=== PATIENT | male | born 2000 | race Caucasian/White ===

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

== ENCOUNTER 2022-03-30 14:32 | Emergency (ER) | payer OTHER ==
[2022-03-30] MEDS ORDERED: XYLOCAINE 1% HCL 20 ML MDV ONE (14:44)
[2022-03-30] MEDS ORDERED: XYLOCAINE 1% HCL 20 ML MDV IJ ONE (14:44)
--- NOTE | 2022-03-30 15:07 | ERPHSYRPT ---
- History of Present Illness Time Seen by Provider: 03/30/22 15:00 Source: patient Exam Limitations: no limitations Patient Subjective Stated Complaint: laceration to L thumb Triage Nursing Assessment: pt to ED c/o lac to L thumb. pt was opening bottle at home and accidentally cut self with knife. applied neosporin and bandaid and came to ED. rates 8/10 pain now. V shaped lac apprx 3 cm in lenth. bleeding controlled on arrival. Physician History: Patient was trying to open a bottle with a knife when he suffered a laceration to the radial side of the distal left thumb is a V-shaped laceration starting laterally and partially going into the nailbed and extending to the tip of the finger toward the pad side. Total length is 3 cm. Neurovascular tendon are intact. He denies any other injury. This occurred just prior to arrival. Occurred: just prior to arrival Method of Injury: incised Quality: aching Severity of Pain-Max: mild Severity of Pain-Current: mild Extremities Pain Location: thumb: left Modifying Factors: Improves With: movement Associated Symptoms: none Allergies/Adverse Reactions: No Known Drug Allergies Allergy (Verified 03/30/22 14:45) Hx Tetanus, Diphtheria Vaccination/Date Given: Yes Hx Influenza Vaccination/Date Given: No Hx Pneumococcal Vaccination/Date Given: No Immunizations Up to Date: Yes Travel Risk - International Travel Have you traveled outside of the country in past 3 weeks: No - Coronavirus Screening Are you exhibiting any of the following symptoms?: No Close contact with a COVID-19 positive Pt in past 14-21 Days: No - Vaccine Status Have you recieved a Covid-19 vaccination: Yes [employer]: Moderna - Vaccination Dates Date of 2cond Vaccination (if applicable): 2020 - Review of Systems Constitutional: No Fever, No Chills Eyes: No Symptoms Ears, Nose, & Throat: No Symptoms Respiratory: No Cough, No Dyspnea Cardiac: No Chest Pain, No Edema, No Syncope Abdominal/Gastrointestinal: No Abdominal Pain, No Nausea, No Vomiting, No Diarrhea Genitourinary Symptoms: No Dysuria Musculoskeletal: No Back Pain, No Neck Pain Skin: No Rash Neurological: No Dizziness, No Focal Weakness, No Sensory Changes Psychological: No Symptoms Endocrine: No Symptoms All Other Systems: Reviewed and Negative - Past Medical History Pertinent Past Medical History: Yes Neurological History: No Pertinent History ENT History: No Pertinent History Cardiac History: No Pertinent History Respiratory History: No Pertinent History Endocrine Medical History: No Pertinent History Musculoskeletal History: Fractures GI Medical History: No Pertinent History History: No Pertinent History Psycho-Social History: Other Male Reproductive Disorders: No Pertinent History Other Medical History: asperger's, ADHD, sutures, arm and leg fx - Past Surgical History Past Surgical History: No Neuro Surgical History: No Pertinent History Cardiac: No Pertinent History Respiratory: No Pertinent History Gastrointestinal: No Pertinent History Genitourinary: No Pertinent History Musculoskeletal: No Pertinent History Male Surgical History: No Pertinent History - Social History Smoking Status: Current every day smoker Exposure to second hand smoke: Yes Drug Use: none Patient Lives Alone: No Significant Family History: no pertinent family hx - Nursing Vital Signs Nursing Vital Signs: Initial Vital Signs Temperature 99 F 03/30/22 14:46 Pulse Rate 69 03/30/22 14:46 Respiratory Rate 22 03/30/22 14:46 Blood Pressure 138/82 03/30/22 14:46 O2 Sat by Pulse Oximetry 97 03/30/22 14:46 Pain Scale Pain Intensity 8 - Physical Exam General Appearance: mild distress, alert Eyes, Ears, Nose, Throat Exam: moist mucous membranes Neck Exam: normal inspection, non-tender, supple Cardiovascular/Respiratory Exam: no respiratory distress Abdominal Exam: No guarding Back Exam: normal inspection, No vertebral tenderness Shoulder Exam: normal inspection, non-tender Elbow/Forearm Exam: normal inspection, non-tender Wrist Exam: normal inspection, non-tender Hand Exam: laceration (V-shaped laceration left thumb radial aspect of the distal phalanx) Neuro/Tendon Exam: normal sensation, normal motor functions Mental Status Exam: alert, oriented x 3, cooperative Skin Exam: normal color, warm, dry, laceration SpO2 Interpretation: normal SpO2: 97 O2 Delivery: Room Air Procedures - Laceration/Wound Repair Left Distal Finger Time of Procedure: 15:05 Wound Location: Left, hand (3 cm laceration V-shaped flap distal phalanx radial aspect of the left thumb) Wound Length (cm): 3 Wound's Depth, Shape: flap Wound Explored: clean Irrigated: Yes Hibiclens Prep: Yes Anesthesia: 1% Lidocaine Volume Anesthetic (ccs): 3 Wound Debrided: minimal Wound Repaired With: sutures Suture Size/Type: 5-0 Number of Sutures: 4 Layer Closure?: No Sterile Dressing Applied?: Yes Splint Applied?: No - Course Nursing assessment & vital signs reviewed: Yes Ordered Tests: Active Orders 24 hr Category Date Time Status Wound Care STAT Care 03/30/22 14:44 Active Medication Summary Discontinued Medications Generic Name Dose Route Start Last Admin Trade Name Mejia PRN Reason Stop Dose Admin Lidocaine HCl 5 ml 03/30/22 14:44 03/30/22 14:52 Lidocaine Hcl 1% 20 Ml Mdv 20 Ml Ml IJ 03/30/22 14:45 5 ml STAT ONE Administration Lidocaine HCl Confirm 03/30/22 14:44 Lidocaine Hcl 1% 20 Ml Mdv 20 Ml Ml Administered 03/30/22 14:45 Dose 5 ml .ROUTE .STK-MED ONE - Progress Progress: improved - Departure Departure Disposition: Home Clinical Impression: Laceration of left thumb Condition: Stable Critical Care Time: No Referrals: DOCTOR,NO FAMILY [Primary Care Provider] - Follow up/PCP as directed Instructions: Laceration Repair With Stitches (DC) Prescriptions: Cephalexin Mh 500 mg [Keflex 500 mg] 500 mg PO Q6H 7 Days #28 cap
[2022-03-30 15:12] VITALS: BP 119/72
[2022-03-30 19:06] VITALS: PULSE 72; O2SAT 100
== END 2022-03-30 15:17 | disposition home or self-care (01) ==
LOC: ED 14:32
DX: S61.112A Laceration without foreign body of left thumb with damage to nail, initial encounter (principal); W26.0XXA Contact with knife, initial encounter; Z72.0 Tobacco use
CPT/HCPCS: 12002; 96372; 99283

== ENCOUNTER 2022-04-03 20:05 | Emergency (ER) | payer OTHER ==
[2022-04-03 20:44] VITALS: BP 126/71; PULSE 86; O2SAT 98
[2022-04-03] MEDS ORDERED: MOTRIN 600 MG PO ONE (20:45)
[2022-04-03] MEDS ORDERED: MOTRIN 600 MG ONE (20:46)
--- NOTE | 2022-04-03 20:51 | ERPHSYRPT ---
- History of Present Illness Source: patient Exam Limitations: no limitations Patient Subjective Stated Complaint: pt states "I got stitches the other day and I tripped and fell today and my stitches started bleeding. I got worried that I popped something off." Triage Nursing Assessment: pt alert and oriented x3, pt ambulates to bed by self, pt has sutures in L thumb that were placed on 03/30/2022, pt fell today and landed on that hand and had some bleeding from the area of sutures, bleeding is controlled at this time, site is clean and dry Physician History: Pt had sutures placed distal L 1st digit on 03/30/22 states that he fell today causing some bleeding. Pt denies fever/increased erythema/exudate. Timing/Duration: other (03/30/22) Quality: painful Severity: mild Location: other (L 1st distal digit) Possible Causes: other (Laceration w knife/Fall) Associated Symptoms: denies symptoms Allergies/Adverse Reactions: No Known Drug Allergies Allergy (Verified 04/03/22 20:37) Hx Tetanus, Diphtheria Vaccination/Date Given: Yes Hx Influenza Vaccination/Date Given: No Hx Pneumococcal Vaccination/Date Given: No Immunizations Up to Date: Yes Travel Risk - International Travel Have you traveled outside of the country in past 3 weeks: No - Coronavirus Screening Are you exhibiting any of the following symptoms?: No Close contact with a COVID-19 positive Pt in past 14-21 Days: No - Vaccine Status Have you recieved a Covid-19 vaccination: Yes Braided Rug Maker: Moderna - Vaccination Dates Date of 2cond Vaccination (if applicable): 2020 - Review of Systems Constitutional: No Symptoms Eyes: No Symptoms Ears, Nose, & Throat: No Symptoms Respiratory: No Symptoms Cardiac: No Symptoms Abdominal/Gastrointestinal: No Symptoms Genitourinary Symptoms: No Symptoms Musculoskeletal: No Symptoms Skin: No Symptoms Neurological: No Symptoms Psychological: No Symptoms Endocrine: No Symptoms Hematologic/Lymphatic: No Symptoms Immunological/Allergic: No Symptoms - Past Medical History Pertinent Past Medical History: Yes Neurological History: No Pertinent History ENT History: No Pertinent History Cardiac History: No Pertinent History Respiratory History: No Pertinent History Endocrine Medical History: No Pertinent History Musculoskeletal History: Fractures GI Medical History: No Pertinent History History: No Pertinent History Psycho-Social History: Other Male Reproductive Disorders: No Pertinent History Other Medical History: asperger's, ADHD, sutures, arm and leg fx - Past Surgical History Past Surgical History: No Neuro Surgical History: No Pertinent History Cardiac: No Pertinent History Respiratory: No Pertinent History Gastrointestinal: No Pertinent History Genitourinary: No Pertinent History Musculoskeletal: No Pertinent History Male Surgical History: No Pertinent History - Social History Smoking Status: Current every day smoker Exposure to second hand smoke: Yes Drug Use: none Patient Lives Alone: No Significant Family History: no pertinent family hx - Nursing Vital Signs Nursing Vital Signs: Initial Vital Signs Temperature 98.2 F 04/03/22 20:37 Pulse Rate 86 04/03/22 20:37 Respiratory Rate 16 04/03/22 20:37 Blood Pressure 126/71 04/03/22 20:37 O2 Sat by Pulse Oximetry 98 04/03/22 20:37 Pain Scale Pain Intensity 8 WNL - Physical Exam General Appearance: no apparent distress Eye Exam: PERRL/EOMI, eyes nml inspection Ears, Nose, Throat Exam: normal ENT inspection, TMs normal, pharynx normal, moist mucous membranes Neck Exam: normal inspection, non-tender, supple, full range of motion, No meningismus, No mass, No Brudzinski, No Kernig's Respiratory Exam: normal breath sounds, lungs clear, airway intact, No respiratory distress Cardiovascular Exam: regular rate/rhythm, normal heart sounds, normal peripheral pulses, capillary refill <2 sec, No murmur Gastrointestinal/Abdomen Exam: soft, normal bowel sounds, No tenderness Back Exam: normal inspection, normal range of motion Extremity Exam: other (Sutures L distal 1st digit/clean, dry, and intact/No exudate, erythema, or dehiscence) Skin Exam: normal color, warm, dry Lymphatic Exam: No adenopathy SpO2 Interpretation: normal SpO2: 98 O2 Delivery: Room Air - Course Nursing assessment & vital signs reviewed: Yes Ordered Tests: Medication Summary Discontinued Medications Generic Name Dose Route Start Last Admin Trade Name Freq PRN Reason Stop Dose Admin Ibuprofen 600 mg 04/03/22 20:45 04/03/22 20:47 Ibuprofen 600 Mg Tablet PO 04/03/22 20:46 600 mg STAT ONE Administration Ibuprofen Confirm 04/03/22 20:46 Ibuprofen 600 Mg Tablet Administered 04/03/22 20:47 Dose 600 mg .ROUTE .STK-MED ONE - Progress Progress Note: 04/03/22 20:50 600mg po Motrin Counseled pt/family regarding: diagnosis, need for follow-up - Departure Departure Disposition: Home Clinical Impression: Encounter for wound re-check Condition: Stable Critical Care Time: No Referrals: DOCTOR,NO FAMILY [Primary Care Provider] - Follow up/PCP as directed Instructions: Wound Care (DC) Additional Instructions: Motrin/Tylenol for pain Wash laceration gently 1-2 times a day with soap/water Watch for signs of infection-redness/pain/pus/temperature greater than 100.5
== END 2022-04-03 20:58 | disposition home or self-care (01) ==
LOC: ED 20:05
DX: Z48.00 Encounter for change or removal of nonsurgical wound dressing (principal)
CPT/HCPCS: 99283; A9270-GY

== ENCOUNTER 2022-04-09 20:52 | Emergency (ER) | payer OTHER ==
--- NOTE | 2022-04-09 21:19 | ERPHSYRPT ---
- History of Present Illness Time Seen by Provider: 04/09/22 21:19 Source: patient Exam Limitations: no limitations Physician History: Patient is a 22-year-old male who was seen approximately 10 days ago with a laceration to the left thumb radial aspect of V-shaped 3 cm in length 4 sutures were placed he presents at the present time for suture removal. He denies any problem with his healing. Timing/Duration: day(s) (10) Location: hands (Left thumb laceration healing) Allergies/Adverse Reactions: No Known Drug Allergies Allergy (Verified 04/03/22 20:37) Hx Tetanus, Diphtheria Vaccination/Date Given: Yes Hx Influenza Vaccination/Date Given: No Hx Pneumococcal Vaccination/Date Given: No Travel Risk - Vaccine Status Have you recieved a Covid-19 vaccination: Yes Orthopedic Rn: Moderna - Vaccination Dates Date of 2cond Vaccination (if applicable): 2020 - Review of Systems Constitutional: No Fever, No Chills Eyes: No Symptoms Ears, Nose, & Throat: No Symptoms Respiratory: No Cough, No Dyspnea Cardiac: No Chest Pain, No Edema, No Syncope Abdominal/Gastrointestinal: No Abdominal Pain, No Nausea, No Vomiting, No Diarrhea Genitourinary Symptoms: No Dysuria Musculoskeletal: No Back Pain, No Neck Pain Skin: No Rash Neurological: No Dizziness, No Focal Weakness, No Sensory Changes Psychological: No Symptoms Endocrine: No Symptoms All Other Systems: Reviewed and Negative - Past Medical History Pertinent Past Medical History: Yes Neurological History: No Pertinent History ENT History: No Pertinent History Cardiac History: No Pertinent History Respiratory History: No Pertinent History Endocrine Medical History: No Pertinent History Musculoskeletal History: Fractures GI Medical History: No Pertinent History History: No Pertinent History Psycho-Social History: Other Male Reproductive Disorders: No Pertinent History Other Medical History: asperger's, ADHD, sutures, arm and leg fx - Past Surgical History Past Surgical History: No Neuro Surgical History: No Pertinent History Cardiac: No Pertinent History Respiratory: No Pertinent History Gastrointestinal: No Pertinent History Genitourinary: No Pertinent History Musculoskeletal: No Pertinent History Male Surgical History: No Pertinent History - Social History Smoking Status: Current every day smoker Exposure to second hand smoke: Yes Drug Use: none Patient Lives Alone: No Significant Family History: no pertinent family hx - Physical Exam General Appearance: no apparent distress, alert Eye Exam: PERRL/EOMI, eyes nml inspection Ears, Nose, Throat Exam: normal ENT inspection, pharynx normal Neck Exam: normal inspection, non-tender, supple, full range of motion Respiratory Exam: airway intact, No respiratory distress Gastrointestinal/Abdomen Exam: No tenderness Back Exam: normal inspection, normal range of motion, No CVA tenderness, No vertebral tenderness Extremity Exam: other (Healing laceration left thumb sutures removed x4) Neurologic Exam: alert, oriented x 3, cooperative, normal mood/affect, sensation nml, No motor deficits Skin Exam: normal color, warm, dry - Course Nursing assessment & vital signs reviewed: Yes - Progress Progress: improved Progress Note: 04/09/22 21:22 Sutures were removed by nursing staff without difficulty - Departure Departure Disposition: Home Clinical Impression: Visit for suture removal Condition: Stable Critical Care Time: No Referrals: DOCTOR,NO FAMILY [Primary Care Provider] - Follow up/PCP as directed Instructions: Wound Care (DC)
[2022-04-09 21:22] VITALS: PULSE 83; O2SAT 99
== END 2022-04-09 21:34 | disposition home or self-care (01) ==
LOC: ED 20:52
DX: Z48.02 Encounter for removal of sutures (principal); Z72.0 Tobacco use
CPT/HCPCS: 99283

== ENCOUNTER 2022-07-11 10:10 | Emergency (ER) | payer OTHER ==
--- NOTE | 2022-07-11 10:24 | ERPHSYRPT ---
- History of Present Illness Time Seen by Provider: 07/11/22 10:23 Source: patient, family Exam Limitations: no limitations Physician History: This is a 22-year-old white male has a history of Asperger's as well as ADHD and states that he has had a headache for approximately 2 and half weeks since he is been out of [facility]. He also says he has throat pain as well. He denies cough. He denies chest pain. He has no shortness of breath. He has no abdominal pain. He has no nausea vomiting or diarrhea. Patient is unable to take Tylenol and ibuprofen [id number] because of the terms of his parole does not authorize him to do so on his own. He denies any recent head injury. He denies any neck pain. Timing/Duration: week(s) (-10/31) Quality: aching Head Pain Location: global Severity of Pain-Max: mild (To moderate) Severity of Pain-Current: mild (To moderate) Associated Symptoms: denies symptoms, No stiff neck Previous symptoms: no prior history Allergies/Adverse Reactions: No Known Drug Allergies Allergy (Verified 07/11/22 10:18) Hx Tetanus, Diphtheria Vaccination/Date Given: Yes Hx Influenza Vaccination/Date Given: No Hx Pneumococcal Vaccination/Date Given: No Travel Risk - International Travel Have you traveled outside of the country in past 3 weeks: No - Coronavirus Screening Are you exhibiting any of the following symptoms?: Yes Symptoms: Headaches/Body Aches/Fatigue Close contact with a COVID-19 positive Pt in past 14-21 Days: Yes - Vaccine Status Have you recieved a Covid-19 vaccination: Yes Calculating Machine Mechanic: Moderna - Vaccination Dates Date of 2cond Vaccination (if applicable): 2020 - Review of Systems Constitutional: No Symptoms Eyes: No Symptoms Ears, Nose, & Throat: Throat Pain Respiratory: No Symptoms Cardiac: No Symptoms Abdominal/Gastrointestinal: No Symptoms Genitourinary Symptoms: No Symptoms Musculoskeletal: No Symptoms, No Neck Pain Skin: No Symptoms Neurological: Headache Psychological: No Symptoms Endocrine: No Symptoms Hematologic/Lymphatic: No Symptoms Immunological/Allergic: No Symptoms All Other Systems: Reviewed and Negative - Past Medical History Pertinent Past Medical History: Yes Neurological History: No Pertinent History ENT History: No Pertinent History Cardiac History: No Pertinent History Respiratory History: No Pertinent History Endocrine Medical History: No Pertinent History Musculoskeletal History: Fractures GI Medical History: No Pertinent History History: No Pertinent History Psycho-Social History: Other Male Reproductive Disorders: No Pertinent History Other Medical History: asperger's, ADHD, sutures, arm and leg fx - Past Surgical History Past Surgical History: No Neuro Surgical History: No Pertinent History Cardiac: No Pertinent History Respiratory: No Pertinent History Gastrointestinal: No Pertinent History Genitourinary: No Pertinent History Musculoskeletal: No Pertinent History Male Surgical History: No Pertinent History - Social History Smoking Status: Current every day smoker Exposure to second hand smoke: Yes Drug Use: none Patient Lives Alone: No Significant Family History: no pertinent family hx - Nursing Vital Signs Nursing Vital Signs: Initial Vital Signs Temperature 97.6 F 07/11/22 10:19 Pulse Rate 75 07/11/22 10:19 Respiratory Rate 18 07/11/22 10:19 Blood Pressure 134/64 07/11/22 10:19 O2 Sat by Pulse Oximetry 97 07/11/22 10:19 Pain Scale Pain Intensity 7 - Physical Exam General Appearance: no apparent distress, alert, anxiety Eye Exam: PERRL/EOMI, eyes nml inspection Ears, Nose, Throat Exam: normal ENT inspection, moist mucous membranes Neck Exam: normal inspection, non-tender, supple, full range of motion Respiratory Exam: normal breath sounds, lungs clear, airway intact, No chest tenderness, No respiratory distress Cardiovascular Exam: regular rate/rhythm, normal heart sounds, normal peripheral pulses Gastrointestinal/Abdominal Exam: soft, normal bowel sounds, No tenderness, No rebound Back Exam: normal inspection, normal range of motion, No CVA tenderness, No vertebral tenderness Extremity Exam: normal inspection, normal range of motion, pelvis stable Mental Status Exam: alert, oriented x 3, cooperative functional architect Exam: normal hearing, normal speech, PERRL Coordination/Gait Exam: normal finger to nose, normal gait, normal cerebellar function Skin Exam: normal color, warm, dry Lymphatic Exam: No adenopathy SpO2 Interpretation: normal O2 Delivery: Room Air - Course Nursing assessment & vital signs reviewed: Yes Ordered Tests: Active Orders 24 hr Category Date Time Status HEAD WITHOUT CONTRAST [CT] Stat Exams 07/11/22 10:39 Completed Lab/Rad Data: Laboratory Results 07/11/22 07/11/22 Range/Units 10:58 10:58 Influenza Type A Ag NEGATIVE (NEGATIVE) Influenza Type B Ag NEGATIVE (NEGATIVE) RSV (PCR) NEGATIVE (Negative) SARS-CoV-2 (PCR) NEGATIVE (NEGATIVE) Group A Strep Antibody NOT DETECTED (NEGATIVE) - Progress Progress: improved Air Movement: good Progress Note: 07/11/22 12:23 CAT scan of the head without contrast shows no acute intracranial abnormality. Blood Culture(s) Obtained: No Antibiotics given: No Counseled pt/family regarding: lab results, diagnosis, need for follow-up, rad results - Departure Departure Disposition: Home Clinical Impression: Headache Condition: Stable Critical Care Time: No Referrals: DOCTOR,NO FAMILY [Primary Care Provider] - Follow up/PCP as directed Additional Instructions: May use Tylenol and ibuprofen [id number] for control of headaches.
[2022-07-11 11:55] LABS: INFLUENZA A NEGATIVE (NEGATIVE); INFLUENZA B NEGATIVE (NEGATIVE); RESPIRATORY SYNCTIAL VIRUS NEGATIVE (Negative); SARS-CoV-2 Xpert Express NEGATIVE (NEGATIVE)
--- NOTE | 2022-07-11 12:11 | XRAY ---
Exam: CT of the head without IV contrast from 07/11/2022. CTDI: 53.92 mGy Comparison: None. Indication: 22-year-old male with dizziness; headaches, worse with movement for 2 1/2 - 3 weeks; no known injury. Technique: Non-IV contrast axial images were obtained through the brain. Reconstructed coronal and sagittal images were created and reviewed. Findings: The patient's head is slightly tilted in the CT gantry. The ventricles appear of unremarkable size and configuration. I see no focal mass effect or midline shift. No acute intracranial bleed or abnormal extra-axial fluid collection is seen. Mayers matter-white matter differentiation is preserved. No low attenuation infarct is evident. I see no gross evidence of intracranial mass on this non-IV contrast study. Structures of the posterior fossa appear unremarkable. The cortical sulci and basilar cisterns appear unremarkable. The calvarium of the skull appears intact without evidence of fracture. The visualized paranasal sinuses are clear without air-fluid levels. The mastoid air cells are clear without effusion. The middle ear cavities appear grossly unremarkable. The orbits reveal no gross abnormality. Impression: 1. No acute intracranial bleed, gross evidence of intracranial mass, or other acute intracranial abnormality is seen.
[2022-07-11 12:41] VITALS: BP 119/74; PULSE 79; O2SAT 98
== END 2022-07-11 12:34 | disposition home or self-care (01) ==
LOC: ED 10:10
DX: R51.9 Headache, unspecified (principal); J02.9 Acute pharyngitis, unspecified; Z72.0 Tobacco use
CPT/HCPCS: 0241U; 70450; 87651; 99283

== ENCOUNTER 2024-06-03 18:23 | Emergency (ER) | payer OTHER ==
[2024-06-03 20:00] VITALS: TEMP 99
[2024-06-03 20:01] VITALS: O2SAT 97
--- NOTE | 2024-06-03 20:55 | ERPHSYRPT ---
- History of Present Illness Time Seen by Provider: 06/03/24 20:45 Source: patient Exam Limitations: no limitations Patient Subjective Stated Complaint: L knee abrasion from a fall 1.5 weeks ago, pt believes that it is infected Triage Nursing Assessment: pt ambulatory to bed by self, pt alert and oriented x3, pt c/o L knee abrasion from a fall 1.5 weeks ago, no drainage noted from site, no reddness/swelling, afebrile Method of Injury: fell Quality: intermittent Lower Extremities Pain: knee: left Allergies/Adverse Reactions: No Known Drug Allergies Allergy (Verified 06/03/24 19:54) Hx Tetanus, Diphtheria Vaccination/Date Given: Yes Hx Influenza Vaccination/Date Given: No Hx Pneumococcal Vaccination/Date Given: No Travel Risk - International Travel Have you traveled outside of the country in past 3 weeks: No - Emerging Infectious Disease Are you exhibiting symptoms associated with any current EIDs: No - Review of Systems Eyes: No Symptoms Ears, Nose, & Throat: No Symptoms Respiratory: No Symptoms Cardiac: No Symptoms Abdominal/Gastrointestinal: No Symptoms Genitourinary Symptoms: No Symptoms Musculoskeletal: Joint Pain - Past Medical History Pertinent Past Medical History: Yes Neurological History: No Pertinent History ENT History: No Pertinent History Cardiac History: No Pertinent History Respiratory History: No Pertinent History Endocrine Medical History: No Pertinent History Musculoskeletal History: Fractures GI Medical History: No Pertinent History History: No Pertinent History Psycho-Social History: Other Male Reproductive Disorders: No Pertinent History Other Medical History: asperger's, ADHD, sutures, arm and leg fx - Past Surgical History Past Surgical History: Yes Neuro Surgical History: No Pertinent History Cardiac: No Pertinent History Respiratory: No Pertinent History Gastrointestinal: No Pertinent History Genitourinary: No Pertinent History Musculoskeletal: Orthopedic Surgery Male Surgical History: No Pertinent History Other Surgical History: R wrist Significant Family History: no pertinent family hx - Social History Smoking Status: Current every day smoker Exposure to second hand smoke: Yes Drug Use: none Patient Lives Alone: No - Social Determinants of Health Will the patient participate in the screening: Yes Do you worry about a steady place to live?: No Do you have any problems with any of the following?: No known problems In the past 12 months,have you had to go without utilities?: No Transportation Issues: No Has anyone in your support network made you feel unsafe?: No Have you or anyone in your house had to go without enough: No - Nursing Vital Signs Nursing Vital Signs: Initial Vital Signs Temperature 99.0 F 06/03/24 19:54 Pulse Rate 60 06/03/24 19:54 Respiratory Rate 18 06/03/24 19:54 Blood Pressure 142/76 06/03/24 19:54 O2 Sat by Pulse Oximetry 96 06/03/24 19:54 Pain Scale Pain Intensity 5 - Physical Exam General Appearance: no apparent distress Eyes, Ears, Nose, Throat Exam: normal ENT inspection Neck Exam: normal inspection Cardiovascular/Respiratory Exam: chest non-tender Gastrointestinal/Abdominal Exam: non-tender Knees Exam: left knee: non-tender (patient has a small abrasion under the left knee that is tender, he has normal range of motion of the left knee and is neurovascularly intact distally) SpO2: 97 - Progress Progress Note: Patient was given wound care precautions he was informed of the need to apply Neosporin to the affected area, he will discharge home with a prescription of Keflex. To follow-up with his primary care provider in the morning 06/03/24 20:58 Medical Desision Making - Diagnostic Testing Diagnostic test were ordered, analyzed, and reviewed by me: No - Departure Clinical Impression: Abrasion of knee, left, Contusion of left knee Condition: Stable Critical Care Time: No Referrals: DOCTOR,NO FAMILY [Primary Care Provider] - Follow up/PCP as directed Prescriptions: Cephalexin Mh 500 mg [Keflex 500 mg] 500 mg PO TID #21 cap
[2024-06-03 21:18] VITALS: BP 128/74; PULSE 54; RESP 15
== END 2024-06-03 21:18 | disposition home or self-care (01) ==
LOC: ED 18:23
DX: S80.212A Abrasion, left knee, initial encounter (principal); W19.XXXA Unspecified fall, initial encounter; Z79.899 Other long term (current) drug therapy; Z72.0 Tobacco use
CPT/HCPCS: 99281